=== PATIENT | female | born 1980 | race Caucasian/White ===

== ENCOUNTER 2020-10-10 15:41 | Emergency (ER) | payer BC ==
[~2020-10-10] VITALS: Ht 157.5 cm; Wt 86.2 kg
[2020-10-10] MEDS ORDERED: XOLAIR150 MG SUB-Q (16:05)
[2020-10-10] MEDS ORDERED: VENTOLIN HFA18 GM INH (16:05)
[2020-10-10] MEDS ORDERED: EPIN0.3P IM (16:06)
[2020-10-10] MEDS ORDERED: PREDNISONE20 MG PO (19:02)
== END 2020-10-10 19:56 | disposition home or self-care (01) ==
LOC: ED 15:41
DX: U07.1 COVID-19 (principal); J45.901 Unspecified asthma with (acute) exacerbation; Z88.0 Allergy status to penicillin; Z79.899 Other long term (current) drug therapy
CPT/HCPCS: 96374; 99284-25; J2930; M0243; Q0244

== ENCOUNTER 2024-03-25 10:07 | Day surgery (SDC) | payer OTHER ==
[~2024-03-25] VITALS: Ht 157.5 cm; Wt 84.5 kg
[~2024-03-25 10:07] MED LIST: ADVAIR 500-501 EACH INH; CEFAZOLIN SODIUM 2 GM/20 ML SYR IV SCH; DEXAMETHASONE SOD PHOS 4 MG/ML VIAL ONE; EPIN0.3P IM; FAMOTIDINE 20 MG/ 2 ML VIAL ONE; IBLOOD GLUCOSE TEST STRIP 1 EA TEST VI PRN; KETAMINE in NS 50 MG/5 ML SYR ONE; KETOROLAC TROMETHAMINE 30 MG/ML VIAL ONE; LACTATED RINGER'S 1,000 ML IV ONE; LACTATED RINGER'S 1,000 ML IV SCH; LIDOCAINE HCL 1% 5 ML SDV INJ ONE; METOCLOPRAMIDE HCL 10 MG/2 ML SDV IV PRN; METOCLOPRAMIDE HCL 10 MG/2 ML SDV ONE; MIDAZOLAM HCL 2 MG/2 ML VIAL ONE; MONTELUKAST SOD10 MG PO; MORPHINE SULFATE 10 MG/ML VIAL IV PRN; NALOXONE HCL 0.4 MG SYR IV PRN; PREDNISONE20 MG PO; PROCHLORPERAZINE EDISYLATE 10 MG/2 ML VIAL IV PRN; VENTOLIN HFA18 GM INH; XOLAIR150 MG SUB-Q; droPERidol 5 MG/2 ML VIAL IV PRN; fentaNYL citrate 100 MCG/2 ML VIAL ONE; fentaNYL citrate 50 MCG/ML SDV IV PRN; ondansetron HCL 4 MG/2 ML VIAL IV PRN; ondansetron HCL 4 MG/2 ML VIAL ONE; propofoL 200 MG/20 ML VIAL ONE
[2024-03-25] MEDS ORDERED: TRANEXAMIC ACID IN NACL,ISO-OS 1,000 MG/100 ML PIGGYBACK IV ONE (10:30)
[2024-03-25] MEDS ORDERED: SEVOFLURANE 250 ML BTL INH ONE (11:00)
[2024-03-25 11:01] VITALS: BP 110/75
[2024-03-25] MEDS ORDERED: MIDAZOLAM HCL 2 MG/2 ML VIAL IV PRN (11:30)
[2024-03-25 12:27] LABS: ABO O; ANTIBODY SCREEN NEGATIVE; RH NEGATIVE
[2024-03-25] MEDS ORDERED: BUPIVACAINE 0.75% IN DEXTROSE 2 ML AMP ONE (13:19)
[2024-03-25] MEDS ORDERED: LIDOCAINE HCL 2% 5 ML SDV ONE (13:19)
[2024-03-25] MEDS ORDERED: diphenhydrAMINE HCL 50 MG/ML VIAL ONE (15:36)
[2024-03-25] MEDS ORDERED: DEXAMETHASONE SOD PHOS 4 MG/ML VIAL ONE (15:36)
--- NOTE | 2024-03-25 16:32 | NUR ---
03/25/24 1632 Kelsey Lincoln PATIENT ARRIVES IN PACU UNRESPONSIVE WITH ORAL AIRWAY IN PLACE. POSTULANT, ESPERANZA, HOLDING JAW THRUST.
--- NOTE | 2024-03-25 17:00 | NUR ---
PT REC'D FROM PACU VIA STRETCHER. REPORT REC'D FROM BELKIS TYSON. PT TRANSFERRED TO BED. 20G IV TO R AC WITH RL AT KVO. PT SLEEPY, BUT AROUSABLE. PT STATES "LITTLE PAIN". INCISION TO BILAT GROIN WELL APPROXIMATED, NO BLEEDING NOTED. PT PROVIDED WARM BLANKETS. PT A&OX4, HRR, L/S CLEAR. SCD'S PLACED. SPOUSE AT BEDSIDE, ORIENTED TO ROOM. SIDERAILS UP X3, CALL MULLIGAN IN REACH, BED IN LOW POSITION AND LOCKED. CPOX AT BEDSIDE, O2 SAT 94-97% RA
[2024-03-25 17:02] VITALS: BP 113/73
[2024-03-25] MEDS ORDERED: HYDROCODON-ACE1 EA10 PO (17:50)
--- NOTE | 2024-03-25 18:16 | NUR ---
DISCUSSED DISCHARGE CRITERIA WITH PATIENT. PT NEEDS TO EAT, VOID, AMBULATE AND HAVE CONTROLLED PAIN. PT VERBALIZED UNDERSTANDING OF CRITERIA. RX FOR PAIN MEDICATION PROVIDED FOR SPOUSE TO TAIL TRIMMER. PT PROVIDED BOXED LUNCH TRAY AND APPLE JUICE. VSS
[2024-03-25 18:20] VITALS: BP 101/65
[2024-03-25] MEDS ORDERED: ondansetron HCL 4 MG/2 ML VIAL IV PRN (18:30)
[2024-03-25] MEDS ORDERED: FAMOTIDINE 20 MG TAB PO PRN (18:30)
[2024-03-25] MEDS ORDERED: HYDROCODONE/ACETA 5/325 TAB PO PRN (18:30)
[2024-03-25] MEDS ORDERED: FAMOTIDINE 20 MG/ 2 ML VIAL IV PRN (18:30)
[2024-03-25] MEDS ORDERED: NALOXONE HCL 0.4 MG SYR IV PRN (18:30)
== END 2024-03-25 19:05 | disposition home or self-care (01) ==
LOC: DS 10:07 → EDSTATUS 12:45 → MS 17:00 → DS 19:05
PROVIDERS: ATTEND Obstetrics & Gynecology
PROC: 0TSD0ZZ Reposition Urethra, Open Approach (ICD-10-PCS; principal; 2024-03-25 12:45)
DX: N39.3 Stress incontinence (female) (male) (principal); N36.41 Hypermobility of urethra; D68.00 Von Willebrand disease, unspecified; J45.50 Severe persistent asthma, uncomplicated; Z79.899 Other long term (current) drug therapy; Z88.0 Allergy status to penicillin; Z90.711 Acquired absence of uterus with remaining cervical stump
CPT/HCPCS: 00860; 36415; 86850; 86900; 86901; C1771; J0690; J1100; J1200; J1885; J2003; J2250; J2405; J2704; J2765; J3010; J3490; J7121